=== PATIENT | female | born 1955 | race Caucasian/White ===

== ENCOUNTER 2018-03-24 09:36 | Emergency (ER) | payer OTHER ==
[2018-03-24 09:46] VITALS: BP 122/72
--- NOTE | 2018-03-24 10:57 | EDM.PDOC ---
ED HPI GENERAL MEDICAL PROBLEM - General Chief Complaint: Lower Extremity Injury/Pain Stated Complaint: LEFT FOOT PAIN Time Seen by Provider: 03/24/18 10:30 Source of Information: Reports: Patient History Limitations: Reports: No Limitations - History of Present Illness INITIAL COMMENTS - FREE TEXT/NARRATIVE: 63-year-old female presents emergency room with abrupt onset of left midfoot pain that occurred last night. She states that the pain was severe enough she was unable to bear weight on her ankle or foot. She noticed mild swelling over the dorsal aspect of the midfoot. She did sustain a fall about 3 days ago but landed on her knee and was not experiencing any pain or discomfort in her foot or ankle at that time. She is active in over this weekend has been helping care for HER-2 grandchildren and has probable dependent care for her who is handicapped and in a wheelchair. She also stays very active with gardening and has a large garden. She has a history of fibromyalgia. She denies significant arthritic complaints in the past no history of gout. She's not had any fever chills and denies any redness to the foot. Onset: Sudden Onset Date: 03/23/18 Duration: Hour(s):, Improving Location: Reports: Lower Extremity, Left (Left foot) Quality: Reports: Sharp Severity: Moderate Improves with: Reports: Rest Worsens with: Reports: Movement (Ambulation) Associated Symptoms: Reports: No Other Symptoms Left Pain Score (Numeric/FACES): 5 - Related Data Allergies Allergy/AdvReac Type Severity Reaction Status Date / Time aspirin Allergy Itching Verified 03/24/18 09:56 cefaclor [From Ceclor] Allergy Hives Verified 03/24/18 09:56 gabapentin [From Neurontin] Allergy Confusion Verified 03/24/18 09:56 methysergide maleate Allergy Confusion Verified 03/24/18 09:56 [From Sansert] morphine Allergy Confusion Verified 03/24/18 09:56 Penicillins Allergy Hives Verified 03/24/18 09:56 Sulfa (Sulfonamide Allergy Hives Verified 03/24/18 09:56 Antibiotics) terconazole Allergy Swelling Verified 03/24/18 09:56 tolterodine tartrate Allergy Hives Verified 03/24/18 09:56 [From Detrol] Home Meds: Home Meds Acetaminophen [Tylenol Arthritis] 650 mg PO BID PRN 02/08/16 [History] Betamethasone Dipropionate [Diprosone 0.05% Crm] 1 applic TOP BID PRN 02/08/16 [ History] ClonazePAM [KlonoPIN] 1 - 2 mg PO 0600,1200 02/08/16 [History] Fluocinonide [Lidex 0.05% Crm] 1 applic TOP BID PRN 02/08/16 [History] Multivitamin with Minerals [Dieter Multivitamin with Mineral] 1 tab PO DAILY 02/07 [History] buPROPion HCl [buPROPion SR] 200 mg PO 0600,1200 02/08/16 [History] Diazepam [Valium] 5 mg PO TID PRN 03/24/18 [History] Ergocalciferol (Vitamin D2) [Vitamin D2] 2,000 unit PO ASDIRECTED 03/24/18 [ History] Hydrocodone/Acetaminophen [Hydrocodon-Acetaminophen 5-325] 1 each PO Q4H PRN [History] Mirabegron [Myrbetriq] 25 mg PO DAILY 03/24/18 [History] Venlafaxine [Effexor] 112.5 mg PO BID 03/24/18 [History] Past Medical History HEENT History: Reports: Impaired Vision Cardiovascular History: Reports: Other (See Below) Other Cardiovascular History: irregular heart beat and aziza Respiratory History: Reports: Other (See Below) Other Respiratory History: Wears CPAP at night. Gastrointestinal History: Reports: GERD Genitourinary History: Reports: None Other Genitourinary History: bladder resection [employer] History: Reports: Musculoskeletal History: Reports: Arthritis, Fibromyalgia Neurological History: Reports: Migraines, MS Psychiatric History: Reports: Anxiety, Depression, Panic Attack Hematologic History: Reports: Blood Transfusion(s) Dermatologic History: Reports: Psoriasis Other Dermatologic History: to hands, creams as needed - Infectious Disease History Infectious Disease History: Reports: Chicken Pox, Measles, Mumps - Past Surgical History HEENT Surgical History: Reports: Tonsillectomy Other HEENT Surgeries/Procedures: gum surgery Cardiovascular Surgical History: Reports: None GI Surgical History: Reports: Appendectomy, Cholecystectomy, Colonoscopy Female Surgical History: Reports: Hysterectomy Other Female Surgeries/Procedures: fertility surgery Neurological Surgical History: Reports: None Dermatological Surgical History: Reports: None Social & Family History - Tobacco Use Smoking Status *Q: Former Smoker Years of Tobacco use: 15 Packs/Tins Daily: 1 Used Tobacco, but Quit: Yes Month/Year Tobacco Last Used: 10 - Caffeine Use Caffeine Use: Reports: Coffee, Soda Other Caffeine Use: diet coke - Recreational Drug Use Recreational Drug Use: No Review of Systems - Review of Systems Review Of Systems: ROS reveals no pertinent complaints other than HPI. ED EXAM, GENERAL - Physical Exam Exam: See Below Exam Limited By: No Limitations General Appearance: Alert, WD/WN, No Apparent Distress, Obese Throat/Mouth: Normal Voice, No Airway Compromise Head: Atraumatic, Normocephalic Peripheral Pulses: 2+: Posterior Tibial (L), Posterior Tibial (R), Dorsalis Pedis (L), Dorsalis Pedis (R) Extremities: Normal Inspection, Normal Range of Motion, Other (Patient has mild localized swelling over the dorsal aspect of her left midfoot it is tender to palpation over the dorsum of the midfoot. She is able move her toesDiscomfort passive stretch is negative she has no tenderness over the plantar fascia no tenderness in the heel ankle motion is normal no tenderness over medial lateral malleolus. No tenderness over the metatarsals of the foot. Her skin is dry and intact. Pulses are 2+ dorsal pedis and posterior tibialis she has cut excellent continuity throughout the tendon at its Achilles tendinitis and insertion into the calf muscle there is no tenderness in the calf. She has intact sensation light touch. Knee hip range of motion are normal right lower extremity shows normal hip knee ankle and foot range of motion). No: Pedal Edema, Joint Swelling, Increased Warmth, Redness Neurological: Alert, Oriented, No Motor/Sensory Deficits Skin Exam: Warm, Dry, Intact, Normal Color, No Rash. No: Ecchymosis, Erythema, Rash Course - Vital Signs Last Recorded V/S: Last Vital Signs Temp 97.7 F 03/24/18 09:41 Pulse 95 03/24/18 09:41 Resp 18 03/24/18 09:41 BP 122/72 03/24/18 09:41 Pulse Ox 97 03/24/18 09:41 - Orders/Labs/Meds Orders: Active Orders 24 hr Category Date Time Status Ankle Min 3V Lt [CR] Stat Exams 03/24/18 10:02 Ordered Foot Comp Min 3V Lt [CR] Stat Exams 03/24/18 10:02 Taken - Radiology Interpretation Free Text/Narrative:: X-rays 3 views left foot x-rays 3 views left ankle Findings: there is mild midfoot degenerative changes otherwise negative for fracture Impression: Mild degenerative changes left midfoot Departure - Departure Time of Disposition: 10:59 Disposition: Home, Self-Care 01 Condition: Good Clinical Impression: Pain of left midfoot - Discharge Information Instructions: RICE for Routine Care of Injuries, [id number], Acute Pain, Adult Referrals: Jose Das CERTIFIED MEDICATION AIDE [Primary Care Provider] - Forms: ED Department Discharge Additional Instructions: 1. RICE, rest, ice, compression, elevation 2. Ibuprofen 800 mg 3 times a day with food 3. Recommend limiting her weightbearing using a well supported shoe and the use of either cane or walker. 4. If your pain does not change, improving over the next 7-10 days would repeat x-ray left foot. 5. Gradual increase her activities as comfort allows. - My Orders Last 24 Hours: My Active Orders 03/24/18 10:02 Ankle Min 3V Lt [CR] Stat Foot Comp Min 3V Lt [CR] Stat - Assessment/Plan Last 24 Hours: My Active Orders 03/24/18 10:02 Ankle Min 3V Lt [CR] Stat Foot Comp Min 3V Lt [CR] Stat Assessment:: Left midfoot pain Plan: 1. RICE, rest, ice, compression, elevation 2. Ibuprofen 800 mg 3 times a day with food 3. Recommend limiting her weightbearing using a well supported shoe and the use of either cane or walker. 4. If your pain does not change, improving over the next 7-10 days would repeat x-ray left foot. 5. Gradual increase her activities as comfort allows.
== END 2018-03-24 11:00 | disposition home or self-care (01) ==
LOC: KA.ED 09:36
DX: M79.672 Pain in left foot (principal); F41.9 Anxiety disorder, unspecified; F32.9 Major depressive disorder, single episode, unspecified; Z87.891 Personal history of nicotine dependence; Z90.49 Acquired absence of other specified parts of digestive tract; Z88.2 Allergy status to sulfonamides; Z88.8 Allergy status to other drugs, medicaments and biological substances; Z99.89 Dependence on other enabling machines and devices
CPT/HCPCS: 73610-LT; 73630-LT; 99283

== ENCOUNTER 2019-01-29 08:57 | Day surgery (SDC) | payer OTHER ==
[2019-01-29] MEDS ORDERED: Midazolam 1 MG/ML 2 ML SDV IV ONE (08:58)
[2019-01-29] MEDS ORDERED: Propofol 200 MG/20 ML SDV IV ONE (08:58)
[2019-01-29] MEDS ORDERED: Lactated Ringers 1,000 ML IV SCH (09:00)
[2019-01-29] MEDS ORDERED: Sodium Chloride 0.9% 10 ML Syringe FLUSH PRN (09:00)
[2019-01-29] MEDS ORDERED: Propofol 200 MG/20 ML SDV ONE ×2 (09:34→09:48)
[2019-01-29] MEDS ORDERED: Midazolam 1 MG/ML 2 ML SDV ONE (09:34)
[2019-01-29 10:03] VITALS: BP 127/59
--- NOTE | 2019-01-29 11:01 | PCM.OPNOTE ---
- General Post-Op/Procedure Note Date of Surgery/Procedure: 01/29/19 Operative Procedure(s): Colonoscopy Findings: Previous history of colon polyps. No new polyps discovered during this examination up to the hepatic flexure. Pre Op Diagnosis: Somewhat poor prep. Previous history of colon polyps. Colonoscopy is performed to the hepatic flexure. Inadequate prep recruits her some evaluating the ascending colon. Anesthesia Technique: MAC Primary Surgeon: Alejandra Larsen Complications: None Condition: Good Free Text/Narrative:: INFORMED CONSENT: Patient is here today for elective colonoscopy. All aspects of this procedure have been discussed with the patient. All possible complications also, including possibility of perforation, infection, pain, bleeding and unknown complications. In the event of perforation patient may need to have abdominal exploration, colon resection, colostomy and even was discussed. Anesthetic complications were handled by anesthesia department. The patient understands fully well. Patient did not have any further questions for me at the end of my interview. The patient wishes for me to proceed. PREOPERATIVE DIAGNOSIS/INDICATIONS: [Previous history of colon polyps] POSTOPERATIVE DIAGNOSIS: [Normal colonoscopy to the hepatic flexure.] INSTRUMENT USED: Olympus videocolonoscope. ASA CLASSIFICATION: [2] ANESTHESIA: Continuous EKG, oximetry and intermittent blood pressure and respiratory monitoring were performed throughout the procedure. IV Versed and Fentanyl were administered. PROCEDURE PERFORMED: Colonoscopy POSITIONS OF PATIENT: Left lateral. RECTUM: Normal. SIGMOID COLON: Normal. DESCENDING COLON: Normal. SPLENIC FLEXURE: Normal. TRANSVERSE COLON: Normal. HEPATIC FLEXURE: Normal. ASCENDING COLON: Normal. CECUM: Could not be visualized due to poor prep. ILEOCECAL VALVE: Could not be visualized due to above reason. BIOPSY: None. TOLERANCE: Excellent. COMPLICATIONS: None.
== END 2019-01-29 12:10 | disposition home or self-care (01) ==
LOC: KA.SDS 08:57
PROVIDERS: ATTEND Family Medicine
DX: Z12.11 Encounter for screening for malignant neoplasm of colon (principal); E03.9 Hypothyroidism, unspecified; F33.9 Major depressive disorder, recurrent, unspecified; F41.1 Generalized anxiety disorder; G43.909 Migraine, unspecified, not intractable, without status migrainosus; Z88.0 Allergy status to penicillin; Z88.2 Allergy status to sulfonamides; Z88.8 Allergy status to other drugs, medicaments and biological substances; Z88.1 Allergy status to other antibiotic agents; Z88.5 Allergy status to narcotic agent; Z86.010 Personal history of colon polyps; Z79.899 Other long term (current) drug therapy
CPT/HCPCS: 00811; J2250; J2704; J7120

== ENCOUNTER 2022-05-14 22:10 | Emergency (ER) | payer MEDICARE, OTHER ==
[2022-05-14] MEDS ORDERED: Sodium Chloride 0.9% 1,000 ML IV ONE (22:32)
[2022-05-14] MEDS ORDERED: Sodium Chloride 0.9% 10 ML Syringe FLUSH PRN (22:32)
[2022-05-14 23:03] LABS: CHLORIDE,CL 99 mmol/L (98-107); ESTIMATED GFR 52 mL/min (>=60); SODIUM,NA 135 mmol/L (136-145)
[2022-05-14 23:16] VITALS: BP 116/74; PULSE 63
[2022-05-14] MEDS ORDERED: Acetaminophen 500 MG Tab PO ONE (23:35)
[2022-05-14] MEDS ORDERED: Acetaminophen 500 MG Tab ONE (23:36)
== END 2022-05-14 23:57 | disposition home or self-care (01) ==
LOC: KA.ED 22:10
DX: R00.2 Palpitations (principal); R61 Generalized hyperhidrosis; E66.9 Obesity, unspecified; Z68.30 Body mass index [BMI] 30.0-30.9, adult; Z88.6 Allergy status to analgesic agent; Z88.1 Allergy status to other antibiotic agents; Z88.8 Allergy status to other drugs, medicaments and biological substances; Z88.0 Allergy status to penicillin; Z88.2 Allergy status to sulfonamides; Z79.899 Other long term (current) drug therapy; Z90.49 Acquired absence of other specified parts of digestive tract; Z90.710 Acquired absence of both cervix and uterus
CPT/HCPCS: 36415; 71045; 80053; 81001; 83605; 84484; 85025; 93010; 96360; 99284; 99285-25; A9270-GY; J7030